=== PATIENT | male | born 1935 | race Caucasian/White ===

== ENCOUNTER 2023-10-21 04:59 | Observation (INO) | payer MEDICARE, OTHER ==
[2023-10-21 06:20] LABS: Influenza A by NAA Not Detected (NotDetected); Influenza B by NAA Not Detected (NotDetected); SARS-CoV-2 NAA Rapid Test DETECTED (NotDetected)
[2023-10-21 06:35] LABS: ALT (SGPT) 10 U/L (8-55); AST (SGOT) 16 U/L (5-34); Albumin 3.9 g/dL (3.4-4.8); Alkaline Phosphatase 79 U/L (40-110); Anion Gap 15 mmol/L (10-20); BUN (Urea Nitrogen) 10 mg/dL (8.4-25.7); Bilirubin, Total 1.6 mg/dL (0.2-1.2); Calc. Creatinine Clearance 0 mL/min (70-130); Calcium 9.3 mg/dL (7.8-10.44); Carbon Dioxide 22 mmol/L (23-31); Chloride 103 mmol/L (98-107); Estimated GFR 86; Globulin 2.9 g/dL (2.4-3.5); Glucose 107 mg/dL (83-110); Lipase 24 U/L (8-78); Magnesium 1.8 mg/dL (1.6-2.6); Potassium 3.7 mmol/L (3.5-5.1); Protein, Total 6.8 g/dL (5.8-8.1); Sodium 136 mmol/L (136-145)
[2023-10-21 06:37] LABS: #Basophils 0.03 10x3/uL (0.0-0.2); #Monocytes 0.92 10x3/uL (0.0-1.1); #Neutrophils 9.43 10x3/uL (1.5-8.4); %Basophils 0.3 % (0.0-2.0); %Eosinophils 0.9 % (0.0-6.0); %Lymphocytes 6.7 % (18.0-47.0); %Monocytes 8.1 % (0.0-10.0); %Neutrophils 83.5 % (40.0-75.0); Hematocrit 46.1 % (38.8-50.0); Hemoglobin 15.2 g/dL (13.5-17.5); Mean Corpuscular Hemoglobin 29.6 pg (27.0-33.0); Mean Corpuscular Volume 89.7 fL (81.2-95.1); Mean Platelet Volume 12.1 fL (7.4-10.4); Platelet Count 133 10x3/uL (150-450); RBC Distribution Width 14.4 % (11.5-14.5); Red Blood Cell (RBC) Count 5.14 10x6/uL (4.32-5.72); White Blood Cell (WBC) Count 11.3 10x3/uL (3.5-10.5)
[2023-10-21 06:43] LABS: Troponin I 0.046 ng/mL (< 0.028)
[2023-10-21 06:46] LABS: Bilirubin Neg (Negative); Blood, Urine 25 (Negative); Clarity Clear (Clear); Glucose, Urine (Dipstick) Normal (Negative); Ketone, Urine 50 mg/dL (Negative); Leukocyte Negative (Negative); Nitrite Negative (Negative); Protein, Urine (Dipstick) 500 mg/dl (Neg-Trace)
[2023-10-21 06:55] LABS: RBC/HPF 0-3 HPF (0-3)
[2023-10-21 06:56] LABS: Bacteria/HPF None Seen HPF (None Seen); CAUTI Indications for Culture Pelvic or flank pain; Squamous Epithelial 0-3 HPF (0-3); Urine Culture Reflex No No; WBC/HPF None Seen HPF (0-3)
[2023-10-21 08:48] VITALS: BMI 21.4
[2023-10-21] MEDS ORDERED: traMADol HCl 50 MG TAB PO PRN (09:11)
[2023-10-21 09:42] LABS: Troponin I 0.055 ng/mL (< 0.028)
[2023-10-21] MEDS: Sodium Chloride 0.9% 1,000 ML IV SCH (09:45)
[2023-10-21 13:04] LABS: Troponin I 0.055 ng/mL (< 0.028)
[2023-10-21] MEDS: Acetaminophen 325 MG TAB PO SCH (13:15)
[2023-10-22 03:53] LABS: Anion Gap 11 mmol/L (10-20); BUN (Urea Nitrogen) 11 mg/dL (8.4-25.7); Calc. Creatinine Clearance 65 mL/min (70-130); Calcium 9.1 mg/dL (7.8-10.44); Carbon Dioxide 26 mmol/L (23-31); Chloride 104 mmol/L (98-107); Estimated GFR 88; Glucose 93 mg/dL (83-110); Potassium 3.2 mmol/L (3.5-5.1); Sodium 138 mmol/L (136-145)
[2023-10-22 04:00] LABS: #Basophils 0.04 10x3/uL (0.0-0.2); #Eosinphils 0.07 10x3/uL (0.0-0.5); #Monocytes 1.09 10x3/uL (0.0-1.1); #Neutrophils 6.72 10x3/uL (1.5-8.4); %Basophils 0.4 % (0.0-2.0); %Eosinophils 0.8 % (0.0-6.0); %Lymphocytes 13.5 % (18.0-47.0); %Monocytes 11.8 % (0.0-10.0); %Neutrophils 73.1 % (40.0-75.0); Hematocrit 43.7 % (38.8-50.0); Hemoglobin 14.9 g/dL (13.5-17.5); Mean Corpuscular HGB CONC 34.1 g/dL (32.0-36.0); Mean Corpuscular Hemoglobin 30.2 pg (27.0-33.0); Mean Corpuscular Volume 88.5 fL (81.2-95.1); Mean Platelet Volume 12.8 fL (7.4-10.4); Platelet Count 133 10x3/uL (150-450); RBC Distribution Width 14.5 % (11.5-14.5); Red Blood Cell (RBC) Count 4.94 10x6/uL (4.32-5.72); White Blood Cell (WBC) Count 9.2 10x3/uL (3.5-10.5)
[2023-10-22 07:51] VITALS: BP 148/82; TEMP 98.2
[2023-10-22] MEDS: Potassium Chloride 20 MEQ TAB PO SCH (09:06)
[2023-10-22] MEDS: Enoxaparin 40 MG (0.4 mL) SYRINGE SC SCH (09:06)
== END 2023-10-22 09:30 | disposition home or self-care (01) ==
LOC: CSHERS 04:59 → CSHTELE 08:38
PROVIDERS: ADMIT Internal Medicine; ATTEND Internal Medicine
DX: R53.1 Weakness (principal); U07.1 COVID-19; I10 Essential (primary) hypertension; I73.9 Peripheral vascular disease, unspecified; R79.89 Other specified abnormal findings of blood chemistry; N40.0 Benign prostatic hyperplasia without lower urinary tract symptoms; K21.9 Gastro-esophageal reflux disease without esophagitis; Z88.2 Allergy status to sulfonamides; Z90.49 Acquired absence of other specified parts of digestive tract; Z90.89 Acquired absence of other organs; Z79.82 Long term (current) use of aspirin; Z79.899 Other long term (current) drug therapy
CPT/HCPCS: 0240U; 70450; 71045; 80048; 80053; 81001; 83605; 83690; 83735; 84484 ×2; 85025 ×2; 93005; 97116; 97530; 99285; G0378 ×2; J1650; J7030; 36415

== ENCOUNTER 2024-01-10 20:49 | Emergency (ER) | payer MEDICARE, OTHER ==
[2024-01-10] MEDS ORDERED: Morphine 4 MG/ML VIAL ONE ×2 (21:42→22:37)
[2024-01-10] MEDS ORDERED: fentaNYL 50 mcg/mL 1 mL Vial ONE (21:55)
[2024-01-10 22:06] LABS: #Basophils 0.03 10x3/uL (0.0-0.2); #Eosinophils 0.15 10x3/uL (0.0-0.5); #Monocytes 0.42 10x3/uL (0.0-1.1); %Basophils 0.3 % (0.0-2.0); %Eosinophils 1.7 % (0.0-6.0); %Lymphocytes 12.2 % (18.0-47.0); %Monocytes 4.7 % (0.0-10.0); %Neutrophils 79.2 % (40.0-75.0); Hematocrit 41.8 % (38.8-50.0); Hemoglobin 13.1 g/dL (13.5-17.5); Mean Corpuscular HGB CONC 31.3 g/dL (32.0-36.0); Mean Corpuscular Hemoglobin 29.2 pg (27.0-33.0); Mean Corpuscular Volume 93.3 fL (81.2-95.1); Mean Platelet Volume 11.4 fL (7.4-10.4); Platelet Count 237 10x3/uL (150-450); RBC Distribution Width 14.1 % (11.5-14.5); Red Blood Cell (RBC) Count 4.48 10x6/uL (4.32-5.72); White Blood Cell (WBC) Count 8.9 10x3/uL (3.5-10.5)
[2024-01-10 22:13] LABS: INR-International Normal Ratio 1.1; PTT 29.1 sec (22.0-33.0); Prothrombin Time 11.4 sec (9.5-12.1)
[2024-01-10 22:17] LABS: ALT (SGPT) 25 U/L (8-55); AST (SGOT) 20 U/L (5-34); Albumin 3.8 g/dL (3.4-4.8); Alkaline Phosphatase 79 U/L (40-110); Anion Gap 12 mmol/L (10-20); BUN (Urea Nitrogen) 8 mg/dL (8.4-25.7); Bilirubin, Total 0.5 mg/dL (0.2-1.2); Calc. Creatinine Clearance 0 mL/min (70-130); Calcium 9.1 mg/dL (7.8-10.44); Carbon Dioxide 29 mmol/L (23-31); Chloride 103 mmol/L (98-107); Estimated GFR 83; Globulin 2.6 g/dL (2.4-3.5); Glucose 107 mg/dL (83-110); Potassium 4.2 mmol/L (3.5-5.1); Protein, Total 6.4 g/dL (5.8-8.1); Sodium 140 mmol/L (136-145)
[2024-01-10] MEDS ORDERED: Acetaminophen 500 MG TAB ONE (22:43)
[2024-01-11] MEDS ORDERED: Ketorolac Tromethamine 30 MG (1 mL) VIAL ONE (00:06)
== END 2024-01-11 01:32 | disposition short-term general hospital (02) ==
LOC: CSHERS 20:49
DX: S72.011A Unspecified intracapsular fracture of right femur, initial encounter for closed fracture (principal); S61.411A Laceration without foreign body of right hand, initial encounter; S51.011A Laceration without foreign body of right elbow, initial encounter; S00.01XA Abrasion of scalp, initial encounter; J44.9 Chronic obstructive pulmonary disease, unspecified; K21.9 Gastro-esophageal reflux disease without esophagitis; I10 Essential (primary) hypertension; E78.5 Hyperlipidemia, unspecified; W01.0XXA Fall on same level from slipping, tripping and stumbling without subsequent striking against object, initial encounter; Z79.82 Long term (current) use of aspirin; Z79.899 Other long term (current) drug therapy
CPT/HCPCS: 36415; 70450; 71045; 72125; 80053; 85025; 85610; 85730; 93005; J2272; J3010